=== PATIENT | female | born 1995 | race African-American/Black ===

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

== ENCOUNTER 2018-07-27 21:45 | Emergency (ER) | payer OTHER ==
[~2018-07-27] VITALS: Ht 157.5 cm; Wt 70.3 kg
[~2018-07-27 21:45] MED LIST changes: +AUGMENTIN 875-1 EAC1 ORAL; +BACITRACIN15 GM TOPIC
--- NOTE | 2018-07-27 22:07 | Emergency Room Report ---
History of Present Illness General Chief Complaint: Upper Extremity Injury Source: Patient Present Illness HPI This is a 22-year-old female who is right-hand dominant. She presents with chief complaint of right hand pain. She said she punched a wall 2 days ago. Now pain over the fifth knuckle. Worse with palpation. Pain is 8 out of 10. No other injury. Movement made it worse. Rest made it better. Allergies: Coded Allergies: No Known Allergies (Unverified , 03/03/18) Patient History Past Medical History: see triage record, old chart reviewed, asthma Past Surgical History: none Pertinent Family History: none Social History: Denies: smoking Last Menstrual Period: 07/20/18 Now: No Immunizations: other Reviewed Nursing Documentation: PMH: Agreed; PSxH: Agreed Nursing Documentation-PMH Past Medical History: No History, Except For Hx Asthma: Yes Review of Systems Eye: Denies: eye pain, blurred vision ENT: Denies: ear pain, nose congestion, throat swelling Respiratory: Denies: cough, shortness of breath Cardiovascular: Denies: chest pain, palpitations Gastrointestinal: Denies: abdominal pain, diarrhea, nausea, vomiting Musculoskeletal: Reports: joint pain; Denies: back pain Skin: Denies: rash Neurological: Denies: headache, numbness Endocrine: Denies: increased thirst, increased urine Hematologic/Lymphatic: Denies: easy bruising All Other Systems: negative except mentioned in HPI Physical Exam Vital Signs Date Time Temp Pulse Resp B/P (MAP) Pulse Ox O2 Delivery O2 Flow Rate FiO2 07/27/18 21:48 98.4 82 12 97/59 98 Room Air vitals normal Sp02 EP Interpretation: reviewed, normal General Appearance: well appearing, no apparent distress, alert Head: normocephalic, atraumatic Eyes: bilateral eye PERRL, bilateral eye EOMI ENT: hearing grossly normal, normal pharynx Neck: full range of motion, supple, no meningismus Respiratory: chest non-tender, lungs clear, normal breath sounds Cardiovascular #1: regular rate, rhythm, no murmur Gastrointestinal: normal bowel sounds, non tender, no mass, no organomegaly, no bruit, non-distended Musculoskeletal: back normal, gait/station normal, normal range of motion, tender - Over right fifth MCP joint Psychiatric: mood/affect normal Skin: warm/dry Procedures Splinting Splinting : Consent: Verbal Location: rt hand Hand-Made Type: plaster Splint: ulnar Pre-Proc Neuro Vasc Exam: normal Post-Proc Neuro Vasc Exam: normal Patient Tolerated: Well Complications: None Medical Decision Making Diagnostic Impression: Primary Impression: Closed boxer's fracture Qualified Codes: S62.339A - Displaced fracture of neck of unspecified metacarpal bone, initial encounter for closed fracture ER Course Patient with a boxer fracture of her right hand. No dislocation. We'll discharge home. Other X-Ray Diagnostic Results Other X-Ray Diagnostic Results : X-Ray ordered: Right-hand x-rays # of Views/Limited Vs Complete: 3 View Indication: Pain EP Interpretation: Yes Interpretation: no dislocation, no soft tissue swelling, other - Fifth metacarpal bone frx Impression: Other - boxer's frx Electronically Signed by: Joel Burton MD Last Vital Signs Date Time Temp Pulse Resp B/P (MAP) Pulse Ox O2 Delivery O2 Flow Rate FiO2 07/27/18 21:48 98.4 82 12 97/59 98 Room Air Status: improved Disposition: HOME, SELF-CARE Condition: Stable Scripts Ibuprofen* (MOTRIN*) 600 Mg Tablet 600 MG ORAL THREE TIMES A DAY, #30 TAB 0 Refills Prov: Joel Burton MD 07/27/18 Hydrocodone/Acetaminophen 5-325* (HYDROCODONE/ACETAMINOPHEN 5-325*) 1 Each Tablet 1 TAB ORAL Q6H PRN for For Pain, #15 TAB 0 Refills Prov: Joel Burton MD 07/27/18 Additional Instructions: Wear splint. Elevate hand. Ice pack to the area. Follow-up with your doctor in 7 days. You may need a referral to see orthopedic doctor. Return if worse. Joel Burton MD Jul 27, 2018 22:07
[2018-07-27 22:15] VITALS: BP 97/59
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
[2018-07-27] MEDS ORDERED: HYDROCODON-ACE1 EA15 ORAL (22:39)
[2018-07-27] MEDS ORDERED: IBUPROFEN600 MG ORAL (22:39)
[2018-07-27 22:45] VITALS: BP 97/59
== END 2018-07-27 22:45 | disposition home or self-care (01) ==
LOC: EMR 22:04
DX: S62.336A Displaced fracture of neck of fifth metacarpal bone, right hand, initial encounter for closed fracture (principal); W22.8XXA Striking against or struck by other objects, initial encounter; Y92.9 Unspecified place or not applicable
CPT/HCPCS: 29125; 99283

== ENCOUNTER 2018-10-12 19:15 | Emergency (ER) | payer OTHER ==
[~2018-10-12] VITALS: Ht 157.5 cm; Wt 63.5 kg
[~2018-10-12 19:15] MED LIST changes: +HYDROCODON-ACE1 EA15 ORAL
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
[2018-10-12 19:48] VITALS: BP 101/66
[2018-10-12] MEDS ORDERED: NAPROXEN250 MG ORAL (19:56)
[2018-10-12] MEDS ORDERED: ROBAXIN-750750 MG PO (19:56)
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
[2018-10-12] MEDS ORDERED: Acetaminophen 500mg (ES) tab ORAL ONE (20:00)
[2018-10-12 20:43] VITALS: BP 115/76
--- NOTE | 2018-10-12 20:43 | NUR ---
ED Nurse Note: pt cleared to be d/c per ER provider, pt discharge and aftercare instruction provided w/ prescription, pt education done via discussion and handout, pt advised to follow up with pcp or return to ed if changes in condition, vss, ambulatory w/ steady gait, left w/ all belongings, pt accompanied by boyfriend.
== END 2018-10-12 20:43 | disposition home or self-care (01) ==
LOC: EMR 20:02
DX: M54.5 Low back pain (principal); M54.6 Pain in thoracic spine; M62.838 Other muscle spasm
CPT/HCPCS: 81025; 99283